=== PATIENT | female | born 1955 | race Caucasian/White ===

== ENCOUNTER → 2016-05-16 | Outpatient (CLI) | payer OTHER ==
[~2016-05-16] VITALS: Ht 149.9 cm; Wt 54.0 kg
[~2016-05-16] MED LIST: ACETAMINOPHEN500 MG PO; ADULT LOW DOSE81 M1 PO; ALDACTONE100 MG PO; ALDACTONE50 MG PO; ALUM-MAG HYDRO360 ML PO; ANUSOL PR; ASACOL HD800 MG PO; ASACOL400 MG PO; ASPIRIN E.C.81 M1 PO; ATROPINE 1100 DROP/5 RIGHT EYE; BACTRIM,SEPT1 TABLET PO; BENTYL20 MG PO; BISAC-EVAC10 MG PR; BISACODYL5 MG PO; BUSPAR10 MG PO; BUSPIRONE HCL10 MG PO; CEPACOL SORE T1 EAC2 MM; CEPACOL SORE THR3 MG MM; CIPRO500 MG PO; COLACE100 MG PO; CRANBERRY425 MG PO; DAILY VITAMIN1 EAC8 PO; DEBROX15 ML BOTH EARS; DEBROX15 ML OT; DILANTIN100 MG PO; DITROPAN5 MG PO; DOCUSATE SODIU100 MG PO; Desyrel PO; Dilantin PO; Ditropan PO; ERYTHROMYCIN BOTH EYES; FENTANYL1 EAC2 TD; FLUNISOLIDE25 M1 IH; FLUNISOLIDE25 M1 NS; FLUNISOLIDE25 M2 NS; Feosol PO; Flagyl PO; Flonase BOTH NARES; GABAPENTIN100 MG PO; HYDROCODON-ACE1 EAC7 PO; ICY HOT PAIN70.8 GM; IMODIUM A-D2 MG PO; ISORDIL,SORBITRA5 MG PO; ISORDIL5 MG PO; K-DUR10 ME2 PO; LACTAID1 TABLET PO; LACTAID3000 UNIT PO; LANOXIN,DIGIT0.25 MG PO; LASIX40 MG PO; LEVOTHYROXINE100 MCG PO; LOPRESSOR12.5 MG PO; LOVENOX40 MG/0.4 SC; Levothroid,Synthroid PO; MICRO-K,K-DUR,10 MEQ PO; MILK OF MAGNESI10 ML PO; MYLANTA PO; NEURONTIN100 MG PO; NIZORAL A-D120 ML; NORCO 5/3251 TABLET PO; OMEPRAZOLE20 M2 PO; OMEPRAZOLE20 M3 PO; OSCAL, OYSTER500 MG PO; PHENERGAN25 MG PR; PHENERGAN25 MG/ML IM; POTASSIUM CHLO10 ME4 PO; PRED FORTE100 DROP/5 RIGHT EYE; PROTONIX40 MG PO; PriLOSEC PO; QUESTRAN PACKET4 GM PO; QUESTRAN4 GM/PACKE PO; REGLAN5 MG PO; ROBITUSSIN DM1 ML PO; ROBITUSSIN DM118 ML PO; SENNA-TIME S T1 EACH PO; SENOKOT S,PE1 TABLET PO; SYNTHROID100 MCG PO; SYSTANE BALANCE10 ML BOTH EYES; Singulair PO; THERAGRAN1 TABLET PO; TRAMADOL HCL50 MG PO; TRAZODONE HCL150 MG PO; TRAZODONE HCL50 MG PO; TYLENOL REGULA325 MG PO; TYLENOL325 M1 PO; Tylenol Regular Stre PO; ULTRAM50 MG PO; Vancocin Oral Soluti PO; XALATAN2.5 ML BOTH EYES; Zeasorb Antifungal Treatment,Mitrazol Powder TP
== END ==
LOC: AMB 04-24 12:30
DX: Z12.11 Encounter for screening for malignant neoplasm of colon (principal); Z09 Encounter for follow-up examination after completed treatment for conditions other than malignant neoplasm; Z86.010 Personal history of colon polyps; K43.5 Parastomal hernia without obstruction or gangrene; Z93.3 Colostomy status; K56.41 Fecal impaction; Z88.0 Allergy status to penicillin

== ENCOUNTER 2016-08-18 09:13 | Inpatient (IN) | payer OTHER ==
[~2016-08-18] VITALS: Ht 157.5 cm; Wt 69.1 kg
[2016-08-18] MEDS ORDERED: DEBROX15 ML BOTH EARS (09:38)
[2016-08-18] MEDS ORDERED: DOCUSATE SODIU100 MG PO (09:48)
[2016-08-18] MEDS ORDERED: MIRALAX255 GM PO (09:49)
[2016-08-18 10:05] VITALS: BP 123/62
[2016-08-18 16:04] VITALS: BP 128/60
[2016-08-18 16:29] LABS: GFR ESTIMATE (CALCULATED) > 59 mL/min/
[2016-08-18 20:20] VITALS: BP 131/62
[2016-08-18 23:51] VITALS: BP 118/58
[2016-08-19 04:29] VITALS: BP 141/79
[2016-08-19 06:55] LABS: HEMATOCRIT 38.8 % (36.0-46.0); MCH 30.6 PG (29.0-34.0); MCV 92.8 FL (83-99); MEAN PLAT.VOLUME 9.6 uM^3 (9.5-12.4); PLATELET COUNT 186 K/uL (156-360); RBC DIS.WIDTH-CV 12.4 % (11.8-14.6); RED BLOOD COUNT 4.18 M/uL (3.80-5.20); WHITE BLOOD COUNT 14.6 K/uL (4.1-10.2)
[2016-08-19 07:20] LABS: ANION GAP 8 MEQ/L (2-14); CHLORIDE 109 MEQ/L (99-109); GFR ESTIMATE (CALCULATED) > 59 mL/min/; GLUCOSE 143 mg/dL (70-99); POTASSIUM 4.8 MEQ/L (3.7-5.4); SAMPLE HEMOLYSIS CHECK 0; SAMPLE ICTERIC CHECK 0; SAMPLE LIPEMIA CHECK 0; SODIUM 135 MEQ/L (136-147); UREA NITROGEN (BUN) 15 mg/dL (9-23)
[2016-08-19 08:00] VITALS: BP 136/84
[2016-08-19 12:00] VITALS: BP 130/80
[2016-08-19 16:00] VITALS: BP 158/70
[2016-08-19 20:11] VITALS: BP 147/68
[2016-08-20] VITALS (7 sets, daily range): BP systolic 133–165; BP diastolic 69–89
[2016-08-21 03:08] VITALS: BP 138/75
[2016-08-21 06:27] LABS: MCH 30.9 PG (29.0-34.0); MCHC 32.8 G/DL (30.0-36.0); MCV 94.1 FL (83-99); MEAN PLAT.VOLUME 10.2 uM^3 (9.5-12.4); PLATELET COUNT 154 K/uL (156-360); RBC DIS.WIDTH-CV 12.9 % (11.8-14.6); RBC DIS.WIDTH-SD 44.6 % (39-53); WHITE BLOOD COUNT 11.4 K/uL (4.1-10.2)
[2016-08-21 06:50] LABS: ALKALINE PHOSPHATASE 63 IU/L (3-129); ANION GAP 8 MEQ/L (2-14); CHLORIDE 114 MEQ/L (99-109); GFR ESTIMATE (CALCULATED) > 59 mL/min/; POTASSIUM 4.4 MEQ/L (3.7-5.4); SAMPLE HEMOLYSIS CHECK 0; SAMPLE ICTERIC CHECK 0; SAMPLE LIPEMIA CHECK 0; SODIUM 140 MEQ/L (136-147); TOTAL BILIRUBIN 1.3 MG/DL (0.0-1.0); UREA NITROGEN (BUN) 18 mg/dL (9-23)
[2016-08-21 07:01] LABS: GLUCOSE 102 mg/dL (70-99)
[2016-08-21 08:01] VITALS: BP 150/73
[2016-08-21 13:09] VITALS: BP 143/76
[2016-08-21 16:13] VITALS: BP 171/84
[2016-08-21 19:38] VITALS: BP 160/80
[2016-08-22] VITALS (8 sets, daily range): BP systolic 109–146; BP diastolic 65–79
[2016-08-23 03:51] VITALS: BP 115/66
[2016-08-23 07:23] LABS: HEMATOCRIT 32.8 % (36.0-46.0); MCH 30.9 PG (29.0-34.0); MCHC 32.9 G/DL (30.0-36.0); MCV 93.7 FL (83-99); MEAN PLAT.VOLUME 10.3 uM^3 (9.5-12.4); PLATELET COUNT 162 K/uL (156-360); RBC DIS.WIDTH-CV 13.1 % (11.8-14.6); RBC DIS.WIDTH-SD 45.1 % (39-53)
[2016-08-23 07:25] LABS: WHITE BLOOD COUNT 6.2 K/uL (4.1-10.2)
[2016-08-23 07:37] LABS: ANION GAP 8 MEQ/L (2-14); CHLORIDE 110 MEQ/L (99-109); GFR ESTIMATE (CALCULATED) > 59 mL/min/; GLUCOSE 112 mg/dL (70-99); POTASSIUM 3.8 MEQ/L (3.7-5.4); SAMPLE HEMOLYSIS CHECK 0; SAMPLE ICTERIC CHECK 0; SAMPLE LIPEMIA CHECK 0; SODIUM 139 MEQ/L (136-147); UREA NITROGEN (BUN) 13 mg/dL (9-23)
[2016-08-23 07:40] VITALS: BP 127/67
[2016-08-23 08:13] LABS: INTER. NORMALIZED RATIO 1.2; PROTHROMBIN TIME 12.7 (9.2-11.2); PTT 33.6 (25-32)
[2016-08-23 09:49] LABS: TYPE OF FLUID PLEURAL
[2016-08-23 10:55] LABS: BODY FLUID LDH 48 IU/L; BODY FLUID PROTEIN < 3.0 G/DL
[2016-08-23 10:57] LABS: BODY FLUID EOSINOPHILS 0 % (0-25); BODY FLUID RBC'S < 1000 /MM^3 (0-100); BODY FLUID WBC'S 275 /MM^3 (0-500); MONONUCLEAR WBC'S 34 %; POLYNUCLEAR WBC'S 66 % (0-25)
[2016-08-23 11:59] LABS: BICARBONATE 20.2 mEq/L (22-26); CARBOXY HGB 1.9 % (0-5); METHEMOGLOBIN 1.7 % (0-1.5); PCO2 29 mm Hg (35-45); pH 7.45 (7.35-7.45)
[2016-08-23 12:00] VITALS: BP 130/70
[2016-08-23 12:00] LABS: COMMENTS - BLOOD GASES A+C+; DEVICE RA; SITE RR; TOTAL RESP RATE 20 resp/min
[2016-08-23 16:30] VITALS: BP 132/65
[2016-08-23 20:53] VITALS: BP 126/58
[2016-08-23 23:37] VITALS: BP 143/73
[2016-08-24] VITALS (9 sets, daily range): BP systolic 87–128; BP diastolic 57–79
[2016-08-24 15:55] LABS: ANION GAP 10 MEQ/L (2-14); CHLORIDE 104 MEQ/L (99-109); GFR ESTIMATE (CALCULATED) > 59 mL/min/; GLUCOSE 105 mg/dL (70-99); MAGNESIUM 1.4 mg/dl (1.3-2.7); SAMPLE HEMOLYSIS CHECK 1; SAMPLE ICTERIC CHECK 0; SAMPLE LIPEMIA CHECK 0; SODIUM 133 MEQ/L (136-147); TRIGLYCERIDES 156 MG/DL (Normal: <150); UREA NITROGEN (BUN) 9 mg/dL (9-23)
[2016-08-24 15:56] LABS: ALKALINE PHOSPHATASE 124 IU/L (3-129); POTASSIUM 3.9 MEQ/L (3.7-5.4)
[2016-08-24 16:03] LABS: PREALBUMIN 7.8 mg/dL (10-40)
[2016-08-24 16:04] LABS: HEMATOCRIT 38.9 % (36.0-46.0); MCH 31.4 PG (29.0-34.0); MCHC 33.4 G/DL (30.0-36.0); MEAN PLAT.VOLUME 10.7 uM^3 (9.5-12.4); RBC DIS.WIDTH-CV 13.3 % (11.8-14.6); RBC DIS.WIDTH-SD 45.5 % (39-53); RED BLOOD COUNT 4.14 M/uL (3.80-5.20)
[2016-08-24 16:06] LABS: PLATELET COUNT 294 K/uL (156-360); WHITE BLOOD COUNT 22.4 K/uL (4.1-10.2)
[2016-08-24 16:29] LABS: ABS NEUTROPHIL COUNT 21.2; ANISOCYTOSIS 1+; ATYPICAL LYMPHOCYTE 0.5 %; EOSINOPHIL ABS CT 0.1; EOSINOPHILS 0.5 % (0-5.0); INSTRUMENT ABS NEUTROPHIL CT 19.7 K/uL; LYMPHOCYTES 2.5 % (15.0-45.0); MICROCYTOSIS 1+; PLAT.SUFFICIENCY ADEQUATE; POLYCHROMASIA 1+; SEG.NEUTROPHILS 75.5 % (46.0-76.0)
[2016-08-24 18:22] LABS: METH RESISTANT S AUREUS PCR NEGATIVE (NEGATIVE)
[2016-08-24 18:29] LABS: PROBE CHECK PASS; SPECIMEN PROCESSING CONTROL PASS
[2016-08-25] VITALS (16 sets, daily range): BP systolic 89–134; BP diastolic 45–74
[2016-08-25 05:48] LABS: BASE EXCESS -4.7 mEq/L (-3 to +3); CARBOXY HGB 1.7 % (0-5); COMMENTS - BLOOD GASES A+C+; DEVICE 840; FI02 30 %; METHEMOGLOBIN 1.6 % (0-1.5); PCO2 30 mm Hg (35-45); PO2 78 mm Hg (80-100); SITE RR; pH 7.41 (7.35-7.45)
[2016-08-25 05:49] LABS: MODE SPONT; PEEP 5 CM/H20; PRES. SUPPORT 5 CM/H2O; TOTAL RESP RATE 16 resp/min
[2016-08-25 06:36] LABS: ANION GAP 5 MEQ/L (2-14); CHLORIDE 107 MEQ/L (99-109); GFR ESTIMATE (CALCULATED) > 59 mL/min/; GLUCOSE 119 mg/dL (70-99); MAGNESIUM 1.4 mg/dl (1.3-2.7); SAMPLE HEMOLYSIS CHECK 0; SAMPLE ICTERIC CHECK 0; SAMPLE LIPEMIA CHECK 0; SODIUM 130 MEQ/L (136-147)
[2016-08-25 07:31] LABS: HEMATOCRIT 33.5 % (36.0-46.0); MCHC 33.7 G/DL (30.0-36.0); MEAN PLAT.VOLUME 10.6 uM^3 (9.5-12.4); PLATELET COUNT 241 K/uL (156-360); RBC DIS.WIDTH-CV 13.3 % (11.8-14.6); RBC DIS.WIDTH-SD 44.6 % (39-53); RED BLOOD COUNT 3.64 M/uL (3.80-5.20); WHITE BLOOD COUNT 18.5 K/uL (4.1-10.2)
[2016-08-25 08:05] LABS: ALKALINE PHOSPHATASE 85 IU/L (3-129); TOTAL BILIRUBIN 1.3 MG/DL (0.0-1.0); UREA NITROGEN (BUN) 21 mg/dL (9-23)
[2016-08-26] VITALS (8 sets, daily range): BP systolic 118–138; BP diastolic 57–72
[2016-08-26 06:24] LABS: ANION GAP 5 MEQ/L (2-14); CHLORIDE 110 MEQ/L (99-109); GFR ESTIMATE (CALCULATED) > 59 mL/min/; GLUCOSE 96 mg/dL (70-99); POTASSIUM 3.5 MEQ/L (3.7-5.4); SAMPLE HEMOLYSIS CHECK 0; SAMPLE ICTERIC CHECK 0; SAMPLE LIPEMIA CHECK 0; SODIUM 135 MEQ/L (136-147); UREA NITROGEN (BUN) 26 mg/dL (9-23)
[2016-08-26 06:25] LABS: MAGNESIUM 2.7 mg/dl (1.3-2.7)
[2016-08-27] VITALS: BP 108/62
[2016-08-27 04:00] VITALS: BP 150/83
[2016-08-27 06:14] LABS: HEMATOCRIT 26.2 % (36.0-46.0); MCH 30.8 PG (29.0-34.0); MCHC 32.8 G/DL (30.0-36.0); MCV 93.9 FL (83-99); MEAN PLAT.VOLUME 10.7 uM^3 (9.5-12.4); PLATELET COUNT 235 K/uL (156-360); RBC DIS.WIDTH-CV 14.2 % (11.8-14.6)
[2016-08-27 06:15] LABS: RED BLOOD COUNT 2.79 M/uL (3.80-5.20)
[2016-08-27 06:25] LABS: ANION GAP 7 MEQ/L (2-14); CHLORIDE 114 MEQ/L (99-109); GFR ESTIMATE (CALCULATED) > 59 mL/min/; GLUCOSE 118 mg/dL (70-99); MAGNESIUM 2.6 mg/dl (1.3-2.7); POTASSIUM 3.8 MEQ/L (3.7-5.4); SAMPLE HEMOLYSIS CHECK 0; SAMPLE ICTERIC CHECK 0; SAMPLE LIPEMIA CHECK 0; SODIUM 140 MEQ/L (136-147); UREA NITROGEN (BUN) 27 mg/dL (9-23)
[2016-08-27 08:00] VITALS: BP 117/86
[2016-08-27 12:00] VITALS: BP 133/67
[2016-08-27 15:50] VITALS: BP 133/65
[2016-08-27 20:20] VITALS: BP 165/77
[2016-08-28 01:02] VITALS: BP 158/83
[2016-08-28 05:00] VITALS: BP 161/81
[2016-08-28 07:20] LABS: HEMATOCRIT 28.5 % (36.0-46.0); MCHC 32.6 G/DL (30.0-36.0); MEAN PLAT.VOLUME 10.2 uM^3 (9.5-12.4); NRBC (%) 0.2 /100 WBC (0-0); PLATELET COUNT 270 K/uL (156-360); RBC DIS.WIDTH-CV 14.7 % (11.8-14.6); RBC DIS.WIDTH-SD 50.1 % (39-53); WHITE BLOOD COUNT 16.2 K/uL (4.1-10.2)
[2016-08-28 07:49] LABS: ANION GAP 5 MEQ/L (2-14); CHLORIDE 118 MEQ/L (99-109); DIRECT BILIRUBIN 0.2 mg/dL (0.0-0.3); GFR ESTIMATE (CALCULATED) > 59 mL/min/; GLUCOSE 119 mg/dL (70-99); MAGNESIUM 2.4 mg/dl (1.3-2.7); POTASSIUM 4.5 MEQ/L (3.7-5.4); PREALBUMIN 10.4 mg/dL (10-40); SAMPLE HEMOLYSIS CHECK 0; SAMPLE ICTERIC CHECK 0; SAMPLE LIPEMIA CHECK 0; SODIUM 144 MEQ/L (136-147); TRIGLYCERIDES 58 MG/DL (Normal: <150); UREA NITROGEN (BUN) 24 mg/dL (9-23)
[2016-08-28 07:50] VITALS: BP 162/78
[2016-08-28 07:52] LABS: ALKALINE PHOSPHATASE 113 IU/L (3-129); TOTAL BILIRUBIN 0.7 MG/DL (0.0-1.0)
[2016-08-28 09:03] LABS: ATYPICAL LYMPHOCYTE 1.8 %; BAND NEUTROPHILS 1.8 % (0-8.0); EOSINOPHIL ABS CT 0; INSTRUMENT ABS NEUTROPHIL CT 12.7 K/uL; LYMPHOCYTES 5.3 % (15.0-45.0); PLAT.SUFFICIENCY ADEQUATE; POLYCHROMASIA 1+; SEG.NEUTROPHILS 84.9 % (46.0-76.0)
[2016-08-28 11:00] VITALS: BP 152/67; BP 158/74
[2016-08-28 16:42] VITALS: BP 160/80
[2016-08-28 20:20] VITALS: BP 160/75
[2016-08-28 22:19] LABS: URINE UREA NITROGEN 11752 MG/24 HR
[2016-08-29 00:38] VITALS: BP 147/66
[2016-08-29 05:12] VITALS: BP 148/74
[2016-08-29 07:00] VITALS: BP 145/85
[2016-08-29 07:57] LABS: HEMATOCRIT 30.6 % (36.0-46.0); MCH 31.3 PG (29.0-34.0); MCHC 32.4 G/DL (30.0-36.0); MCV 96.8 FL (83-99); MEAN PLAT.VOLUME 10.4 uM^3 (9.5-12.4); PLATELET COUNT 288 K/uL (156-360); RBC DIS.WIDTH-CV 15.2 % (11.8-14.6); RBC DIS.WIDTH-SD 51.7 % (39-53); RED BLOOD COUNT 3.16 M/uL (3.80-5.20); WHITE BLOOD COUNT 18.3 K/uL (4.1-10.2)
[2016-08-29 08:16] LABS: ANION GAP 6 MEQ/L (2-14); CHLORIDE 112 MEQ/L (99-109); GFR ESTIMATE (CALCULATED) > 59 mL/min/; GLUCOSE 117 mg/dL (70-99); POTASSIUM 4.3 MEQ/L (3.7-5.4); SAMPLE HEMOLYSIS CHECK 0; SAMPLE ICTERIC CHECK 0; SAMPLE LIPEMIA CHECK 0; SODIUM 139 MEQ/L (136-147); UREA NITROGEN (BUN) 23 mg/dL (9-23)
[2016-08-29 10:57] LABS: TYPE OF FLUID PLEURAL
[2016-08-29 11:20] LABS: BODY FLUID RBC'S < 1000 /MM^3 (0-100); BODY FLUID WBC'S 245 /MM^3 (0-500)
[2016-08-29 11:48] LABS: BODY FLUID LDH 34 IU/L
[2016-08-29 11:49] LABS: BODY FLUID PROTEIN 0.9 G/DL
[2016-08-29 12:54] LABS: BODY FLUID EOSINOPHILS 2 % (0-25); MONO RAW COUNT 44; MONONUCLEAR WBC'S 44 %; POLY RAW COUNT 54; POLYNUCLEAR WBC'S 54 % (0-25)
[2016-08-29 13:07] VITALS: BP 115/58
[2016-08-29 16:28] VITALS: BP 124/65
[2016-08-29 19:45] VITALS: BP 118/63
[2016-08-30] VITALS (7 sets, daily range): BP systolic 116–152; BP diastolic 63–77
[2016-08-30 06:54] LABS: EOSINOPHIL (%) 1.8 % (0-5); EOSINOPHIL COUNT 0.3 K/uL (0-0.3); HEMATOCRIT 28.9 % (36.0-46.0); IMMATURE GRANULOCYTE (%) 4.3 % (0.0-0.7); IMMATURE GRANULOCYTE COUNT 0.7 K/uL; INSTRUMENT ABS NEUTROPHIL CT 12.4 K/uL; LYMPHOCYTE COUNT 1.2 K/uL (1.0-2.8); MCH 30.6 PG (29.0-34.0); MCHC 31.8 G/DL (30.0-36.0); MEAN PLAT.VOLUME 10.5 uM^3 (9.5-12.4); MONOCYTE (%) 8.6 % (3-12); MONOCYTE COUNT 1.4 K/uL (0-0.8); NEUTROPHIL (%) 77.8 % (45-76); NEUTROPHIL COUNT 12.4 K/uL (1.8-6.4); PLATELET COUNT 246 K/uL (156-360); RBC DIS.WIDTH-CV 15.4 % (11.8-14.6); RBC DIS.WIDTH-SD 51.7 % (39-53); RED BLOOD COUNT 3.01 M/uL (3.80-5.20); WHITE BLOOD COUNT 15.9 K/uL (4.1-10.2)
[2016-08-30 07:21] LABS: ANION GAP 6 MEQ/L (2-14); CHLORIDE 110 MEQ/L (99-109); GFR ESTIMATE (CALCULATED) > 59 mL/min/; GLUCOSE 125 mg/dL (70-99); MAGNESIUM 1.9 mg/dl (1.3-2.7); POTASSIUM 4.2 MEQ/L (3.7-5.4); SAMPLE HEMOLYSIS CHECK 0; SAMPLE ICTERIC CHECK 0; SAMPLE LIPEMIA CHECK 0; SODIUM 136 MEQ/L (136-147); UREA NITROGEN (BUN) 23 mg/dL (9-23)
[2016-08-31 04:47] VITALS: BP 138/80
[2016-08-31 06:38] LABS: EOSINOPHIL (%) 1.7 % (0-5); EOSINOPHIL COUNT 0.2 K/uL (0-0.3); HEMATOCRIT 29.9 % (36.0-46.0); IMMATURE GRANULOCYTE (%) 3.5 % (0.0-0.7); IMMATURE GRANULOCYTE COUNT 0.5 K/uL; INSTRUMENT ABS NEUTROPHIL CT 11.1 K/uL; LYMPHOCYTE COUNT 1.1 K/uL (1.0-2.8); MCH 30.9 PG (29.0-34.0); MCHC 32.1 G/DL (30.0-36.0); MCV 96.1 FL (83-99); MEAN PLAT.VOLUME 10.5 uM^3 (9.5-12.4); MONOCYTE (%) 8.5 % (3-12); MONOCYTE COUNT 1.2 K/uL (0-0.8); NEUTROPHIL (%) 78.3 % (45-76); NEUTROPHIL COUNT 11.1 K/uL (1.8-6.4); PLATELET COUNT 265 K/uL (156-360); RBC DIS.WIDTH-CV 15.8 % (11.8-14.6); RBC DIS.WIDTH-SD 50.8 % (39-53); RED BLOOD COUNT 3.11 M/uL (3.80-5.20); WHITE BLOOD COUNT 14.2 K/uL (4.1-10.2)
[2016-08-31 07:04] LABS: ANION GAP 5 MEQ/L (2-14); CHLORIDE 107 MEQ/L (99-109); GFR ESTIMATE (CALCULATED) > 59 mL/min/; GLUCOSE 114 mg/dL (70-99); MAGNESIUM 1.8 mg/dl (1.3-2.7); POTASSIUM 4.6 MEQ/L (3.7-5.4); SAMPLE HEMOLYSIS CHECK 0; SAMPLE ICTERIC CHECK 0; SAMPLE LIPEMIA CHECK 0; SODIUM 136 MEQ/L (136-147); UREA NITROGEN (BUN) 26 mg/dL (9-23)
[2016-08-31 07:39] VITALS: BP 136/70
[2016-08-31 15:41] VITALS: BP 136/72
[2016-08-31 20:10] VITALS: BP 129/69
[2016-09-01 00:40] VITALS: BP 133/70
[2016-09-01 04:44] VITALS: BP 141/68
[2016-09-01 07:05] VITALS: BP 118/58
[2016-09-01 07:28] LABS: EOSINOPHIL (%) 1.3 % (0-5); EOSINOPHIL COUNT 0.2 K/uL (0-0.3); HEMATOCRIT 29.1 % (36.0-46.0); IMMATURE GRANULOCYTE (%) 2.2 % (0.0-0.7); IMMATURE GRANULOCYTE COUNT 0.3 K/uL; INSTRUMENT ABS NEUTROPHIL CT 9.4 K/uL; LYMPHOCYTE COUNT 0.8 K/uL (1.0-2.8); MCH 30.8 PG (29.0-34.0); MCHC 31.6 G/DL (30.0-36.0); MCV 97.3 FL (83-99); MEAN PLAT.VOLUME 10.6 uM^3 (9.5-12.4); MONOCYTE COUNT 1.1 K/uL (0-0.8); NEUTROPHIL (%) 80.2 % (45-76); NEUTROPHIL COUNT 9.4 K/uL (1.8-6.4); PLATELET COUNT 259 K/uL (156-360); RBC DIS.WIDTH-CV 16.3 % (11.8-14.6); RBC DIS.WIDTH-SD 54.5 % (39-53); RED BLOOD COUNT 2.99 M/uL (3.80-5.20); WHITE BLOOD COUNT 11.8 K/uL (4.1-10.2)
[2016-09-01 07:51] LABS: ANION GAP 5 MEQ/L (2-14); CHLORIDE 106 MEQ/L (99-109); GFR ESTIMATE (CALCULATED) > 59 mL/min/; GLUCOSE 121 mg/dL (70-99); POTASSIUM 4.6 MEQ/L (3.7-5.4); SAMPLE HEMOLYSIS CHECK 0; SAMPLE ICTERIC CHECK 0; SAMPLE LIPEMIA CHECK 0; SODIUM 137 MEQ/L (136-147); UREA NITROGEN (BUN) 29 mg/dL (9-23)
[2016-09-01] MEDS ORDERED: HYDROCODON-ACE1 EAC7 PO (09:47)
[2016-09-01] MEDS ORDERED: DUONEB 2.5-0.5 M3 ML AEROSOL (09:47)
[2016-09-01] MEDS ORDERED: ZOSYN 3.3753.375 GM IV (10:16)
[2016-09-01 11:10] VITALS: BP 132/61
== END 2016-09-01 15:47 | DRG 329 ==
LOC: SDC 09:13 → 2EAST 13:47 → 2SOUTH 13:47 → 2EAST 15:46 → SDC 15:58 → 2EAST 08-24 11:49 → 4WEST 08-24 14:25 → 4EAST 08-27 15:30 → 2EAST 08-31 19:28
PROVIDERS: Internal Medicine Pulmonary Disease; Physician Assistant; Radiology Diagnostic Radiology; Surgery
PROC: 0DJD8ZZ Inspection of Lower Intestinal Tract, Via Natural or Artificial Opening Endoscopic (ICD-10-PCS; principal; 2016-08-18)
PROC: 0DQP0ZZ Repair Rectum, Open Approach (ICD-10-PCS; principal; 2016-08-18)
PROC: 0WQFXZ2 Repair Abdominal Wall, Stoma, External Approach (ICD-10-PCS; principal; 2016-08-18)
PROC: 0DBA0ZZ Excision of Jejunum, Open Approach (ICD-10-PCS; principal; 2016-08-18)
PROC: 0W993ZZ Drainage of Right Pleural Cavity, Percutaneous Approach (ICD-10-PCS; 2016-08-23)
PROC: 0WJJ0ZZ Inspection of Pelvic Cavity, Open Approach (ICD-10-PCS; 2016-08-24)
PROC: 0JQC0ZZ Repair Pelvic Region Subcutaneous Tissue and Fascia, Open Approach (ICD-10-PCS; 2016-08-24)
PROC: 0DNW0ZZ Release Peritoneum, Open Approach (ICD-10-PCS; 2016-08-24)
PROC: 3E0436Z Introduction of Nutritional Substance into Central Vein, Percutaneous Approach (ICD-10-PCS; 2016-08-24)
PROC: 0U9 Female Reproductive System, Drainage (ICD-10-PCS; 2016-08-24)
PROC: 05H633Z Insertion of Infusion Device into Left Subclavian Vein, Percutaneous Approach (ICD-10-PCS; 2016-08-24)
PROC: 0W9B3ZZ Drainage of Left Pleural Cavity, Percutaneous Approach (ICD-10-PCS; 2016-08-29)
DX: K43.3 Parastomal hernia with obstruction, without gangrene (principal); E43 Unspecified severe protein-calorie malnutrition; J90 Pleural effusion, not elsewhere classified; I69.354 Hemiplegia and hemiparesis following cerebral infarction affecting left non-dominant side; J98.11 Atelectasis; K91.71 Accidental puncture and laceration of a digestive system organ or structure during a digestive system procedure; T81.31XA Disruption of external operation (surgical) wound, not elsewhere classified, initial encounter; K51.90 Ulcerative colitis, unspecified, without complications; F33.9 Major depressive disorder, recurrent, unspecified; Z93.3 Colostomy status; R33.9 Retention of urine, unspecified; Q96.9 Turner's syndrome, unspecified; K66.0 Peritoneal adhesions (postprocedural) (postinfection); K63.5 Polyp of colon; K62.89 Other specified diseases of anus and rectum; T81.4XXA Infection following a procedure, initial encounter; I27.2 Other secondary pulmonary hypertension; B36.9 Superficial mycosis, unspecified; E88.09 Other disorders of plasma-protein metabolism, not elsewhere classified; I48.2 Chronic atrial fibrillation; D64.9 Anemia, unspecified; M24.50 Contracture, unspecified joint; E03.9 Hypothyroidism, unspecified; F70 Mild intellectual disabilities; L89.329 Pressure ulcer of left buttock, unspecified stage; B95.61 Methicillin susceptible Staphylococcus aureus infection as the cause of diseases classified elsewhere; B96.5 Pseudomonas (aeruginosa) (mallei) (pseudomallei) as the cause of diseases classified elsewhere; E66.9 Obesity, unspecified; G40.909 Epilepsy, unspecified, not intractable, without status epilepticus; L89.319 Pressure ulcer of right buttock, unspecified stage; N73.9 Female pelvic inflammatory disease, unspecified; I87.2 Venous insufficiency (chronic) (peripheral); K21.9 Gastro-esophageal reflux disease without esophagitis; G47.33 Obstructive sleep apnea (adult) (pediatric); F41.9 Anxiety disorder, unspecified; I51.7 Cardiomegaly; G89.29 Other chronic pain; E86.0 Dehydration; Z68.22 Body mass index [BMI] 22.0-22.9, adult; Z88.1 Allergy status to other antibiotic agents; Z88.0 Allergy status to penicillin; Z91.018 Allergy to other foods; Z91.012 Allergy to eggs; Z99.3 Dependence on wheelchair
CPT/HCPCS: 31720; 36600; 70450; 71010; 76937; 80048; 80053; 81050; 82248; 82565; 82803; 82945; 83615 91; 83735; 83986 90; 84100; 84134; 84157; 84478; 84540; 84630 90; 85025; 85027; 85610; 85730; 87070; 87075; 87076; 87077; 87116; 87147; 87185; 87186; 87205; 87206; 87641; 88108; 88305; 88307; 89051; 94002; 94003; 94010; 94640; 94640 76; 94667; 94668; 94760; 94799; 95819; 97530 GO; 99202; C1781; C1894; C9113; J0330; J0690; J0692; J0744; J1170; J1200; J1650; J2250; J2405; J2543; J2710; J2765; J3010; J3475; J3480; J7030; J7050; S0030

== ENCOUNTER 2016-09-07 09:38 | Emergency (ER) | payer OTHER ==
[~2016-09-07] VITALS: Ht 157.5 cm; Wt 74.0 kg
[~2016-09-07 09:38] MED LIST changes: +DUONEB 2.5-0.5 M3 ML AEROSOL; +MIRALAX255 GM PO; +ZOSYN 3.3753.375 GM IV
[2016-09-07 11:01] VITALS: BP 121/72
== END 2016-09-07 11:34 ==
LOC: EME → EDBD 09:38 → EME 11:34
PROC: 02PYX3Z Removal of Infusion Device from Great Vessel, External Approach (ICD-10-PCS; principal; 2016-09-07)
DX: T82.524A Displacement of infusion catheter, initial encounter (principal); Y83.1 Surgical operation with implant of artificial internal device as the cause of abnormal reaction of the patient, or of later complication, without mention of misadventure at the time of the procedure
CPT/HCPCS: 71010; 73020; 99281; 99283

== ENCOUNTER 2017-10-11 02:03 | Inpatient (IN) | payer OTHER ==
[~2017-10-11] VITALS: Ht 157.5 cm; Wt 55.5 kg
[~2017-10-11 02:03] MED LIST changes: +ASPIR 8181 M1 PO; +BENTYL10 MG PO; +BUSPAR5 MG PO; +FUROSEMIDE20 MG PO; +GABAPENTIN300 MG PO; +ICY HOT 16% POW49 GM TP; +ONE DAILY COMP1 EACH PO; +SYSTANE BALANCE10 ML RIGHT EYE
[2017-10-11 02:41] LABS: HEMATOCRIT 30.8 % (36.0-46.0); HEMOGLOBIN 9.7 G/DL (11.9-15.5); MCH 27.7 PG (29.0-34.0); MCHC 31.5 G/DL (30.0-36.0); PLATELET COUNT 224 K/uL (156-360); RBC DIS.WIDTH-CV 17.4 % (11.8-14.6); RBC DIS.WIDTH-SD 54.3 % (39-53); WHITE BLOOD COUNT 12.6 K/uL (4.1-10.2)
[2017-10-11 02:52] LABS: CHLORIDE 103 mEq/L (99-109); POTASSIUM 4.2 mEq/L (3.7-5.4); SODIUM 135 mEq/L (136-147)
[2017-10-11 02:54] LABS: GLUCOSE 104 mg/dL (70-99)
[2017-10-11 02:58] LABS: CREATININE 0.8 mg/dL (0.6-1.3); GFR ESTIMATE (CALCULATED) > 59 mL/min/
[2017-10-11 02:59] LABS: UREA NITROGEN (BUN) 20 mg/dL (9-23)
[2017-10-11 03:02] LABS: TROP-I INTERPRETATION NEGATIVE; TROPONIN-I 0.03 ng/mL (0.0-0.30)
[2017-10-11 08:27] VITALS: BP 118/59
[2017-10-11] MEDS ORDERED: ASPIR 8181 M1 PO (11:14)
[2017-10-11] MEDS ORDERED: DEBROX15 ML BOTH EARS (11:16)
[2017-10-11] MEDS ORDERED: LASIX20 MG PO (11:19)
[2017-10-11] MEDS ORDERED: ICY HOT CREAM35.4 G1 TP (11:19)
[2017-10-11] MEDS ORDERED: DAILY VITE1 EAC1 PO (11:20)
[2017-10-11] MEDS ORDERED: LATANOPROST2.5 ML BOTH EYES (11:20)
[2017-10-11] MEDS ORDERED: SYNTHROID100 MCG PO (11:20)
[2017-10-11] MEDS ORDERED: PROTONIX40 MG PO (11:21)
[2017-10-11] MEDS ORDERED: K-DUR10 MEQ PO (11:21)
[2017-10-11] MEDS ORDERED: SENNA8.6 MG PO (11:22)
[2017-10-11] MEDS ORDERED: ALDACTONE50 MG PO (11:22)
[2017-10-11] MEDS ORDERED: TRAZODONE HCL50 MG PO (11:22)
[2017-10-11] MEDS ORDERED: ASCORBIC ACID500 M3 PO (11:23)
[2017-10-11] MEDS ORDERED: ZINC SULFATE220 M1 PO (11:24)
[2017-10-11] MEDS ORDERED: BUSPAR5 MG PO (11:24)
[2017-10-11] MEDS ORDERED: ELIQUIS2.5 MG PO (11:24)
[2017-10-11] MEDS ORDERED: METOCLOPRAMIDE H5 MG PO (11:25)
[2017-10-11] MEDS ORDERED: CRANBERRY425 MG PO (11:25)
[2017-10-11] MEDS ORDERED: SYSTANE BALANCE10 ML RIGHT EYE (11:26)
[2017-10-11] MEDS ORDERED: MUPIROCIN22 GM BOTH NARES (11:26)
[2017-10-11] MEDS ORDERED: GABAPENTIN300 MG PO (11:26)
[2017-10-11] MEDS ORDERED: NORCO 5/3251 TABLET PO (11:27)
[2017-10-11] MEDS ORDERED: MACROBID100 MG PO (11:28)
[2017-10-11] MEDS ORDERED: ACETAMINOPHEN325 M1 PO (11:29)
[2017-10-11] MEDS ORDERED: MILK OF MAGN PO (11:30)
[2017-10-11] MEDS ORDERED: OXYCODONE HCL10 MG PO (11:31)
[2017-10-11 12:00] VITALS: BP 114/58
[2017-10-11 15:46] VITALS: BP 118/55
[2017-10-11 19:40] VITALS: BP 141/64
[2017-10-12] VITALS (7 sets, daily range): BP systolic 112–131; BP diastolic 56–63
[2017-10-12 06:10] LABS: BASOPHIL (%) 0.2 % (0-1); EOSINOPHIL (%) 0.5 % (0-5); HEMATOCRIT 25.4 % (36.0-46.0); HEMOGLOBIN 8.1 G/DL (11.9-15.5); IMMATURE GRANULOCYTE (%) 0.9 % (0.0-0.7); LYMPHOCYTE (%) 5.2 % (15-42); LYMPHOCYTE COUNT 0.4 K/uL (1.0-2.8); MCH 27.7 PG (29.0-34.0); MCHC 31.9 G/DL (30.0-36.0); MONOCYTE (%) 9.3 % (3-12); MONOCYTE COUNT 0.8 K/uL (0-0.8); NEUTROPHIL (%) 83.9 % (45-76); NEUTROPHIL COUNT 6.8 K/uL (1.8-6.4); PLATELET COUNT 221 K/uL (156-360); RBC DIS.WIDTH-CV 17.9 % (11.8-14.6); RBC DIS.WIDTH-SD 55.8 % (39-53); RED BLOOD COUNT 2.92 M/uL (3.80-5.20); WHITE BLOOD COUNT 8.1 K/uL (4.1-10.2)
[2017-10-12 06:40] LABS: CHLORIDE 107 MEQ/L (99-109); CREATININE 0.6 MG/DL (0.6-1.3); GFR ESTIMATE (CALCULATED) > 59 mL/min/; GLUCOSE 114 mg/dL (70-99); POTASSIUM 3.5 MEQ/L (3.7-5.4); SODIUM 137 MEQ/L (136-147); UREA NITROGEN (BUN) 20 mg/dL (9-23)
[2017-10-13 03:54] VITALS: BP 122/58
[2017-10-13 06:25] LABS: BASOPHIL (%) 0.1 % (0-1); EOSINOPHIL COUNT 0.1 K/uL (0-0.3); HEMATOCRIT 25.1 % (36.0-46.0); HEMOGLOBIN 7.8 G/DL (11.9-15.5); IMMATURE GRANULOCYTE (%) 1.1 % (0.0-0.7); LYMPHOCYTE (%) 4.2 % (15-42); LYMPHOCYTE COUNT 0.3 K/uL (1.0-2.8); MCH 27.7 PG (29.0-34.0); MCHC 31.1 G/DL (30.0-36.0); MONOCYTE (%) 6.7 % (3-12); MONOCYTE COUNT 0.6 K/uL (0-0.8); NEUTROPHIL (%) 86.9 % (45-76); NEUTROPHIL COUNT 7.1 K/uL (1.8-6.4); PLATELET COUNT 206 K/uL (156-360); RBC DIS.WIDTH-SD 57.7 % (39-53); RED BLOOD COUNT 2.82 M/uL (3.80-5.20); WHITE BLOOD COUNT 8.2 K/uL (4.1-10.2)
[2017-10-13 06:50] LABS: CHLORIDE 112 MEQ/L (99-109); CREATININE 0.5 MG/DL (0.6-1.3); GFR ESTIMATE (CALCULATED) > 59 mL/min/; GLUCOSE 99 mg/dL (70-99); POTASSIUM 3.8 MEQ/L (3.7-5.4); SODIUM 143 MEQ/L (136-147); UREA NITROGEN (BUN) 16 mg/dL (9-23)
[2017-10-13 10:22] VITALS: BP 132/66
[2017-10-13 16:41] VITALS: BP 153/72
[2017-10-13 19:36] VITALS: BP 155/67
[2017-10-13 23:30] VITALS: BP 133/85
[2017-10-14 07:09] LABS: BASOPHIL (%) 0.2 % (0-1); EOSINOPHIL (%) 0.8 % (0-5); EOSINOPHIL COUNT 0.1 K/uL (0-0.3); HEMATOCRIT 27.4 % (36.0-46.0); HEMOGLOBIN 8.5 G/DL (11.9-15.5); IMMATURE GRANULOCYTE (%) 1.2 % (0.0-0.7); LYMPHOCYTE (%) 3.6 % (15-42); LYMPHOCYTE COUNT 0.5 K/uL (1.0-2.8); MCH 28.1 PG (29.0-34.0); MCV 90.4 FL (83-99); MONOCYTE (%) 5.4 % (3-12); MONOCYTE COUNT 0.7 K/uL (0-0.8); NEUTROPHIL (%) 88.8 % (45-76); NEUTROPHIL COUNT 11.6 K/uL (1.8-6.4); RBC DIS.WIDTH-CV 18.9 % (11.8-14.6); RBC DIS.WIDTH-SD 61.2 % (39-53); RED BLOOD COUNT 3.03 M/uL (3.80-5.20); WHITE BLOOD COUNT 13.1 K/uL (4.1-10.2)
[2017-10-14 07:30] LABS: PLATELET COUNT 292 K/uL (156-360)
[2017-10-14 07:37] LABS: CHLORIDE 117 MEQ/L (99-109); CREATININE 0.5 MG/DL (0.6-1.3); GFR ESTIMATE (CALCULATED) > 59 mL/min/; GLUCOSE 91 mg/dL (70-99); POTASSIUM 3.9 MEQ/L (3.7-5.4); SODIUM 146 MEQ/L (136-147); UREA NITROGEN (BUN) 12 mg/dL (9-23)
[2017-10-14 08:46] VITALS: BP 153/76
[2017-10-14 16:16] VITALS: BP 14/60
[2017-10-14 23:56] VITALS: BP 108/65
[2017-10-15 10:44] LABS: BASOPHIL (%) 0.3 % (0-1); EOSINOPHIL (%) 1.5 % (0-5); EOSINOPHIL COUNT 0.2 K/uL (0-0.3); HEMATOCRIT 28.2 % (36.0-46.0); HEMOGLOBIN 8.7 G/DL (11.9-15.5); IMMATURE GRANULOCYTE (%) 0.9 % (0.0-0.7); LYMPHOCYTE (%) 4.8 % (15-42); LYMPHOCYTE COUNT 0.7 K/uL (1.0-2.8); MCH 27.7 PG (29.0-34.0); MCHC 30.9 G/DL (30.0-36.0); MCV 89.8 FL (83-99); MONOCYTE (%) 7.4 % (3-12); NEUTROPHIL (%) 85.1 % (45-76); NEUTROPHIL COUNT 11.8 K/uL (1.8-6.4); PLATELET COUNT 291 K/uL (156-360); RBC DIS.WIDTH-CV 19.3 % (11.8-14.6); RBC DIS.WIDTH-SD 61.6 % (39-53); RED BLOOD COUNT 3.14 M/uL (3.80-5.20); WHITE BLOOD COUNT 13.8 K/uL (4.1-10.2)
[2017-10-15 11:12] LABS: CHLORIDE 123 MEQ/L (99-109); CREATININE 0.5 MG/DL (0.6-1.3); GFR ESTIMATE (CALCULATED) > 59 mL/min/; GLUCOSE 88 mg/dL (70-99); POTASSIUM 3.8 MEQ/L (3.7-5.4); SODIUM 150 MEQ/L (136-147); UREA NITROGEN (BUN) 12 mg/dL (9-23)
[2017-10-15 17:39] VITALS: BP 118/73
[2017-10-15 23:56] VITALS: BP 131/71
[2017-10-16 05:37] LABS: BASOPHIL (%) 0.2 % (0-1); EOSINOPHIL (%) 0.9 % (0-5); EOSINOPHIL COUNT 0.1 K/uL (0-0.3); HEMATOCRIT 29.6 % (36.0-46.0); HEMOGLOBIN 8.6 G/DL (11.9-15.5); IMMATURE GRANULOCYTE (%) 1.1 % (0.0-0.7); LYMPHOCYTE (%) 4.1 % (15-42); LYMPHOCYTE COUNT 0.6 K/uL (1.0-2.8); MCH 27.1 PG (29.0-34.0); MCHC 29.1 G/DL (30.0-36.0); MCV 93.4 FL (83-99); MONOCYTE (%) 8.3 % (3-12); MONOCYTE COUNT 1.1 K/uL (0-0.8); NEUTROPHIL (%) 85.4 % (45-76); NEUTROPHIL COUNT 11.8 K/uL (1.8-6.4); PLATELET COUNT 282 K/uL (156-360); RBC DIS.WIDTH-CV 19.5 % (11.8-14.6); RBC DIS.WIDTH-SD 65.6 % (39-53); RED BLOOD COUNT 3.17 M/uL (3.80-5.20); WHITE BLOOD COUNT 13.8 K/uL (4.1-10.2)
[2017-10-16 06:13] LABS: CHLORIDE 126 MEQ/L (99-109); CREATININE 0.6 MG/DL (0.6-1.3); GFR ESTIMATE (CALCULATED) > 59 mL/min/; GLUCOSE 85 mg/dL (70-99); POTASSIUM 3.9 MEQ/L (3.7-5.4); SODIUM 153 MEQ/L (136-147); UREA NITROGEN (BUN) 14 mg/dL (9-23)
[2017-10-16 07:58] VITALS: BP 140/96
== END 2017-10-17 20:03 | DRG 178 ==
LOC: EME → EDBD 02:03 → EME 02:03 → EDOF 05:00 → 3EAST 05:00 → ENRESERV 05:23 → 3EAST 07:24
PROVIDERS: Emergency Medicine; Family Medicine
DX: J69.0 Pneumonitis due to inhalation of food and vomit (principal); Z51.5 Encounter for palliative care; L89.522 Pressure ulcer of left ankle, stage 2; L89.620 Pressure ulcer of left heel, unstageable; L89.892 Pressure ulcer of other site, stage 2; E87.2 Acidosis; I48.91 Unspecified atrial fibrillation; I10 Essential (primary) hypertension; S82.102D Unspecified fracture of upper end of left tibia, subsequent encounter for closed fracture with routine healing; M97.02XD Periprosthetic fracture around internal prosthetic left hip joint, subsequent encounter; I69.354 Hemiplegia and hemiparesis following cerebral infarction affecting left non-dominant side; R13.10 Dysphagia, unspecified; R47.01 Aphasia; R47.1 Dysarthria and anarthria; R09.02 Hypoxemia; R49.0 Dysphonia; Z66 Do not resuscitate; Z74.01 Bed confinement status; D64.9 Anemia, unspecified; G40.909 Epilepsy, unspecified, not intractable, without status epilepticus; E03.9 Hypothyroidism, unspecified; J45.909 Unspecified asthma, uncomplicated; K21.9 Gastro-esophageal reflux disease without esophagitis; K51.90 Ulcerative colitis, unspecified, without complications; F32.9 Major depressive disorder, single episode, unspecified; F41.9 Anxiety disorder, unspecified; Z85.038 Personal history of other malignant neoplasm of large intestine; Z90.49 Acquired absence of other specified parts of digestive tract; Z93.3 Colostomy status; Z96.642 Presence of left artificial hip joint
CPT/HCPCS: 71045; 74230; 80048; 80202; 83605; 84484; 85025; 85027; 87040; 92526 GN; 92610 GN; 92611 GN; 93005; 94640; 94640 76; 94760; 94799; 99202; 99281; 99285; A6214; J1650; J1940; J1956; J3370; J3480; J7042; J7050

== ENCOUNTER 2017-10-17 15:28 | Inpatient (IN) | payer OTHER ==
[~2017-10-17 15:28] MED LIST changes: +ACETAMINOPHEN325 M1 PO; +ASCORBIC ACID500 M3 PO; +DAILY VITE1 EAC1 PO; +ELIQUIS2.5 MG PO; +ICY HOT CREAM35.4 G1 TP; +K-DUR10 MEQ PO; +LASIX20 MG PO; +LATANOPROST2.5 ML BOTH EYES; +MACROBID100 MG PO; +METOCLOPRAMIDE H5 MG PO; +MILK OF MAGN PO; +MUPIROCIN22 GM BOTH NARES; +OXYCODONE HCL10 MG PO; +SENNA8.6 MG PO; +ZINC SULFATE220 M1 PO
[2017-10-17 20:24] VITALS: BP 139/85
[2017-10-18 00:18] VITALS: BP 139/76
[2017-10-18 04:05] VITALS: BP 110/52
== END 2017-10-18 12:27 | DRG 177 ==
LOC: 5EAST 15:28 → ENRESERV 15:29 → 5EAST 20:10
DX: J69.0 Pneumonitis due to inhalation of food and vomit (principal); Z51.5 Encounter for palliative care; Z66 Do not resuscitate; A41.9 Sepsis, unspecified organism; I48.91 Unspecified atrial fibrillation; L89.522 Pressure ulcer of left ankle, stage 2; I69.359 Hemiplegia and hemiparesis following cerebral infarction affecting unspecified side; M97.02XD Periprosthetic fracture around internal prosthetic left hip joint, subsequent encounter; Z88.0 Allergy status to penicillin; Z88.1 Allergy status to other antibiotic agents; Z88.7 Allergy status to serum and vaccine